=== PATIENT | male | born 1990 | race Caucasian/White ===

== ENCOUNTER 2019-06-10 02:10 | Emergency (ER) | payer MEDICAID, OTHER ==
[~2019-06-10] VITALS: Ht 170.2 cm; Wt 79.4 kg
[2019-06-10 02:30] VITALS: BP_SYST 121
[2019-06-10 03:15] VITALS: BP_SYST 121
== END 2019-06-10 03:15 ==
LOC: SED 02:10
DX: Z02.89 Encounter for other administrative examinations (principal); V43.52XA Car driver injured in collision with other type car in traffic accident, initial encounter; Y93.89 Activity, other specified; Y92.89 Other specified places as the place of occurrence of the external cause; Y99.8 Other external cause status
CPT/HCPCS: 99283